=== PATIENT | male | born 1945 | race Caucasian/White ===

== ENCOUNTER 2016-09-16 15:58 | Outpatient (CLI) | payer MEDICARE, OTHER | END 2016-09-16 15:59 | disposition home or self-care (01) | DX: M79.662 Pain in left lower leg (principal) ==

== ENCOUNTER 2022-01-07 14:28 | Outpatient (CLI) | payer MEDICARE ==
--- NOTE | 2022-01-07 16:52 | XRAY Report ---
PROCEDURE: Hip w/Pelvis 2-3V LT INDICATIONS: LEFT HIP PAIN TECHNIQUE: AP pelvis with lateral view(s) of the left hip(s). COMPARISON: None. FINDINGS: Bones: No fractures or dislocations. Pelvic ring appears intact. No suspicious bony lesions. Mild left hip osseous hypertrophy compatible with osteoarthritis. Soft tissues: The visualized bowel gas pattern is normal. No suspicious soft tissue calcifications. Prostate radiotherapy seeds. IMPRESSION: Mild left hip osteoarthritis.. Reviewed by: Kimberly Carbone MD, PhD on 01/07/2022 4:50 PM PDT Approved by: Kimberly Carbone MD, PhD on 01/07/2022 4:50 PM PDT Station ID: [id number]
== END 2022-01-07 14:29 | disposition home or self-care (01) ==
LOC: DI.N 14:28
PROVIDERS: ATTEND Physician Assistant
DX: M16.12 Unilateral primary osteoarthritis, left hip (principal)